=== PATIENT | female | born 1985 ===

== ENCOUNTER 2017-05-11 22:03 | Emergency (ER) | payer OTHER ==
[2017-05-11 22:18] VITALS: BMI 24.2
[2017-05-11] MEDS ORDERED: Sodium Chloride 0.9% 1,000 ML IV ONE ×2 (22:24→23:20)
[2017-05-11] MEDS ORDERED: Sodium Chloride 0.9% 1,000 ML ONE ×2 (22:33→23:19)
[2017-05-11 22:44] LABS: BASO # 0.1 K/uL (0.0-0.2); BASO % 0.6 % (0.0-2.0); EOS # 0.1 K/uL (0.0-0.7); EOS % 0.7 % (0.0-4.0); HEMATOCRIT 40.9 % (34.0-47.0); LYMPH % 19.9 % (20.0-40.0); MEAN CELL VOLUME 89.8 fL (81.0-99.0); MEAN CORPUSCULAR HEMOGLOBIN 30.5 pg (27.0-31.0); MONO # 0.5 K/uL (0.0-0.8); MONO % 4.8 % (0.0-10.0); RED CELL DISTRIBUTION WIDTH 13.2 % (11.5-14.5); WHITE BLOOD COUNT 10.1 K/uL (4.8-10.8)
--- NOTE | 2017-05-11 22:45 | C.PDOC ---
History Of Present Illness 31 y/o female presents to the ER accompanied by her boyfriend with altered mental status and anxiety. Patient admits to ETOH use tonight, she states she had "3 1/2 margaritas"; denies fever or chills. Time Seen by Provider: 05/11/17 22:24 Chief Complaint (Nursing): Anxiety History Per: Patient History/Exam Limitations: no limitations Onset/Duration Of Symptoms: Hrs, Sudden Onset Current Symptoms Are (Timing): Still Present Suicide/Self Injury Attempted (Context): None Modifying Factor(s): Alcohol Associated Symptoms: Anxiety. denies: Depression, Suicidal Thoughts, Suicidal Plan Involuntary Hold By: None Recent travel outside of the [place]: No Past Medical History Reviewed: Historical Data, Nursing Documentation, Vital Signs Vital Signs: Last Vital Signs Temp 97.9 F 05/11/17 22:18 Pulse 81 05/11/17 22:18 Resp 19 05/11/17 22:18 BP 107/75 05/11/17 22:18 Pulse Ox 98 05/11/17 23:16 - Medical History PMH: No Chronic Diseases Surgical History: No Surg Hx Family History: States: No Known Family Hx - Social History Hx Alcohol Use: Yes Hx Substance Use: (unobtainable) - Immunization History Hx Tetanus Toxoid Vaccination: (unable to obtain) Hx Influenza Vaccination: (unable to obtain) Hx Pneumococcal Vaccination: (unable to obtain) Review Of Systems Except As Marked, All Systems Reviewed And Found Negative. Constitutional: Negative for: Fever, Chills Gastrointestinal: Negative for: Nausea, Vomiting, Diarrhea Neurological: Positive for: Altered Mental Status Psych: Positive for: Anxiety Physical Exam - Physical Exam Appears: Other (Tearful, Bizarre, appears intoxicated) Skin: Normal Color, Warm, Dry Head: Atraumatic, Normacephalic Oral Mucosa: Moist Chest: Symmetrical Cardiovascular: Rhythm Regular Respiratory: Normal Breath Sounds Gastrointestinal/Abdominal: Soft, No Tenderness Neurological/Psych: Oriented x3, Normal Speech, Normal Cognition ED Course And Treatment - Laboratory Results Result Diagrams: 05/11/17 10:30 05/11/17 10:30 Lab Interpretation: Abnormal (tox + cannabanoids, etoh 189) Urine POC: Negative ECG: Interpreted By Me ECG Rhythm: Sinus Rhythm ECG Interpretation: Normal Rate From EC O2 Sat by Pulse Oximetry: 98 (Room air) Pulse Ox Interpretation: Normal Progress Note: EKG, blood work, and urinalysis ordered. IV fluids administered. Reevaluation Time: 23:45 Reassessment Condition: Improved (stable gait, though continued emotional lability, follows instructions.) Medical Decision Making Medical Decision Making: alcohol and cannabis abuse, ETOH 189 H Disposition Doctor Will See Patient In The: Office Counseled Patient/Family Regarding: Studies Performed, Diagnosis - Disposition Disposition: HOME/ ROUTINE Disposition Time: 23:45 Condition: GOOD Forms: [employer] ([place]) - Clinical Impression Clinical Impression: Alcohol abuse, Cannabis abuse - Scribe Statement The provider has reviewed the documentation as recorded by the Caleb Montoya Provider Attestation: All medical record entries made by the Caleb were at my direction and personally dictated by me. I have reviewed the chart and agree that the record accurately reflects my personal performance of the history, physical exam, medical decision making, and the department course for this patient. I have also personally directed, reviewed, and agree with the discharge instructions and disposition.
[2017-05-11 23:08] LABS: CHLORIDE 105 mmol/L (98-107)
[2017-05-11 23:09] LABS: POTASSIUM 3.6 mmol/L (3.6-5.2); SODIUM 140 mmol/L (132-148)
[2017-05-11 23:11] LABS: ALB/GLOB RATIO 1.3 (1.0-2.1); ALKALINE PHOSPHATASE 49 U/L (38-126); AST/SGOT 39 U/L (14-36); BILIRUBIN,TOTAL 0.6 mg/dL (0.2-1.3); BLOOD UREA NITROGEN 7 mg/dL (7-17); CARBON DIOXIDE 19 mmol/L (22-30); GFR AFRICAN-AMERICAN > 60
[2017-05-11 23:12] LABS: ALCOHOL SERUM 189 mg/dl (0-10); ALT/SGPT 34 U/L (9-52); CALCIUM 9.1 mg/dl (8.6-10.4); GLUCOSE,RANDOM 94 mg/dL (65-105)
[2017-05-11 23:20] LABS: RBC URINE 1 /hpf (0-3); URINE BILIRUBIN NEGATIVE (NEGATIVE); URINE BLOOD NEGATIVE (NEGATIVE); URINE COLOR Yellow (YELLOW); URINE GLUCOSE (UA) NORMAL (Normal); URINE KETONE NEGATIVE (NEGATIVE); URINE LEUKOCYTE ESTERASE NEG Leu/uL (Negative); URINE PROTEIN NEGATIVE (NEGATIVE); URINE UROBILINOGEN NORMAL mg/dL (0.2-1.0); WBC URINE 2 /hpf (0-5)
[2017-05-11 23:52] VITALS: BP 125/83; PULSE 68; RESP 18; TEMP 98; O2SAT 99
--- NOTE | 2017-05-19 17:12 | CARD ---
APPROVED REPORT EKG Measurement Heart [id number] <Conclusion> Sinus rhythm with premature atrial complexes Otherwise normal ECG
== END 2017-05-11 23:53 | disposition home or self-care (01) ==
LOC: C.ER 22:03
DX: F10.10 Alcohol abuse, uncomplicated (principal); F12.10 Cannabis abuse, uncomplicated; Y90.6 Blood alcohol level of 120-199 mg/100 ml
CPT/HCPCS: 80053; 80320; 80324; 80329; 80345; 80346; 80349; 80353; 80358; 80361; 81001; 83992; 84703; 85025; 93005; 96360; 99284; J7040